=== PATIENT | female | born 1970 | race Asian ===

== ENCOUNTER → 2017-02-26 | Outpatient (CLI) | payer OTHER | END | disposition disaster alternative care site (69) | LOC: GBCOE 09:06 | DX: Z12.31 Encounter for screening mammogram for malignant neoplasm of breast (principal) | CPT/HCPCS: G0202 ==

== ENCOUNTER → 2017-03-08 | Outpatient (CLI) | payer OTHER | END | disposition disaster alternative care site (69) | LOC: GRAD 03-05 10:30 | DX: R92.8 Other abnormal and inconclusive findings on diagnostic imaging of breast (principal); N60.01 Solitary cyst of right breast ==

== ENCOUNTER → 2017-03-09 | Day surgery (SDC) | payer OTHER ==
[~2017-03-09] VITALS: Ht 162.6 cm; Wt 61.1 kg
== END | disposition disaster alternative care site (69) ==
LOC: GPOC 03-04 09:00 → GEND 07:12 → GPOC 07:30
PROC: 0DJD8ZZ Inspection of Lower Intestinal Tract, Via Natural or Artificial Opening Endoscopic (ICD-10-PCS; principal; 2017-03-09)
DX: Z12.11 Encounter for screening for malignant neoplasm of colon (principal); Z91.040 Latex allergy status
CPT/HCPCS: J2001; J7030